=== PATIENT | male | born 1985 | race Two or more races ===

== ENCOUNTER 2019-05-14 00:18 | Inpatient (IN) | payer OTHER ==
[~2019-05-14] VITALS: Ht 180.3 cm; Wt 64.2 kg
[2019-05-14] MEDS ORDERED: ONDANSETRON ODT 4 MG PO ONE (01:00)
[2019-05-14] MEDS ORDERED: ACETAMINOPHEN 500 MG TABLET PO ONE (01:00)
[2019-05-14] MEDS ORDERED: ACETAMINOPHEN 500 MG TABLET ONE (01:28)
[2019-05-14] MEDS ORDERED: ONDANSETRON ODT 4 MG ONE (01:28)
--- NOTE | 2019-05-14 01:35 | NUR ---
PT LEFT FOR CT
--- NOTE | 2019-05-14 01:51 | NUR ---
PT BACK FROM CT
[2019-05-14 02:04] LABS: BASOPHILS # (AUTO) 0.03 x10^3/uL (0-0.1); BASOPHILS % (AUTO) 1 % (0-1); EOSINOPHILS # (AUTO) 0.19 x10^3/uL (0-0.4); EOSINOPHILS % (AUTO) 3 % (1-7); LYMPHOCYTES # (AUTO) 1.92 x10^3/uL (1-3.4); LYMPHOCYTES % (AUTO) 26 % (22-44); MD NO; MEAN CORPUSCULAR HEMOGLOBIN 29.2 pg (27.5-34.5); MEAN CORPUSCULAR HGB CONC 32.7 g/dL (33.2-36.2); MEAN CORPUSCULAR VOLUME 89.1 fL (81-97); MEAN PLATELET VOLUME 8.3 fL (7.4-10.4); MONOCYTES # (AUTO) 0.57 x10^3/uL (0.2-0.8); MONOCYTES % (AUTO) 8 % (2-9); NEUTROPHILS # (AUTO) 4.75 x10^3/uL (1.8-6.8); NEUTROPHILS % (AUTO) 64 % (42-75); PLATELET COUNT 259 x10^3/uL (130-400); RED BLOOD COUNT 5.08 x10^6/uL (4.38-5.82); RED CELL DISTRIBUTION WIDTH 11.8 % (9.4-14.8)
[2019-05-14 02:16] LABS: ALBUMIN 3.8 g/dL (3.4-5.0); ANION GAP 5 mmol/L (5-15); CALCIUM 8.6 mg/dL (8.5-10.1); CHLORIDE 107 mmol/L (98-107); CREATININE 0.98 mg/dL (0.7-1.3); INTERNATIONAL NORMALIZED RATIO 1.02 (0.93-1.1); PROTHROMBIN TIME 10.7 Seconds (9.6-11.5)
[2019-05-14] MEDS ORDERED: MORPHINE SULFATE 4 MG/ML, 1ML ONE (02:17)
[2019-05-14] MEDS ORDERED: ONDANSETRON 2MG/ML, 2ML ONE (02:17)
[2019-05-14] MEDS ORDERED: ONDANSETRON 2MG/ML, 2ML IVPush ONE (02:30)
[2019-05-14] MEDS ORDERED: ONDANSETRON 2MG/ML, 2ML IVPush PRN (02:30)
[2019-05-14] MEDS ORDERED: ACETAMINOPHEN 325 MG TABLET PO PRN (02:30)
[2019-05-14] MEDS ORDERED: SODIUM CHLORIDE 0.9% 1,000ML IVBOLUS ONE (02:30)
[2019-05-14] MEDS ORDERED: MORPHINE SULFATE 4 MG/ML, 1ML IVPush PRN ×2 (02:30→03:00)
[2019-05-14] MEDS ORDERED: hydrALAzine 20 MG/ML, 1ML IV PRN (03:00)
[2019-05-14 03:31] LABS: FREE T4 (FREE THYROXINE) 1.01 ng/dL (0.76-1.46)
[2019-05-14] MEDS: SODIUM CHLORIDE 0.9% 1,000 ML IV SCH ×2 (04:28→16:14)
[2019-05-14 04:34] VITALS: BP 124/79
[2019-05-14 06:38] VITALS: BP 129/86
[2019-05-14] MEDS ORDERED: GADOTERATE 7.5 MMOL/15 ML SYR ONE (07:23)
[2019-05-14] MEDS: DEXAMETHASONE 4 MG TABLET PO SCH ×4 (08:00→16:14)
[2019-05-14] MEDS ORDERED: DEXAMETHASONE 1 MG TABLET ONE ×2 (09:56→12:24)
[2019-05-14] MEDS: ACETAMINOPHEN 325 MG TABLET PO SCH ×3 (10:00→22:06)
[2019-05-14] MEDS: OXYcodone IR 5MG TABLET PO PRN ×2 (11:21→20:54)
[2019-05-14 12:09] VITALS: BP 115/74
[2019-05-14 20:12] VITALS: BP 109/67
[2019-05-15 01:13] VITALS: BP 101/61
[2019-05-15] MEDS: SODIUM CHLORIDE 0.9% 1,000 ML IV SCH ×2 (01:50→10:30)
[2019-05-15] MEDS: ACETAMINOPHEN 325 MG TABLET PO SCH ×4 (05:09→22:02)
[2019-05-15] MEDS: OXYcodone IR 5MG TABLET PO PRN (05:13)
[2019-05-15 06:49] LABS: BASOPHILS # (AUTO) 0.01 x10^3/uL (0-0.1); BASOPHILS % (AUTO) 0 % (0-1); EOSINOPHILS % (AUTO) 0 % (1-7); LYMPHOCYTES # (AUTO) 1.06 x10^3/uL (1-3.4); LYMPHOCYTES % (AUTO) 8 % (22-44); MD NO; MEAN CORPUSCULAR HEMOGLOBIN 29.1 pg (27.5-34.5); MEAN CORPUSCULAR HGB CONC 32.9 g/dL (33.2-36.2); MEAN CORPUSCULAR VOLUME 88.6 fL (81-97); MEAN PLATELET VOLUME 8.8 fL (7.4-10.4); MONOCYTES # (AUTO) 0.55 x10^3/uL (0.2-0.8); MONOCYTES % (AUTO) 4 % (2-9); NEUTROPHILS # (AUTO) 11.42 x10^3/uL (1.8-6.8); NEUTROPHILS % (AUTO) 88 % (42-75); PLATELET COUNT 253 x10^3/uL (130-400); RED BLOOD COUNT 4.82 x10^6/uL (4.38-5.82)
[2019-05-15 06:50] LABS: ANION GAP 7 mmol/L (5-15); CALCIUM 8.4 mg/dL (8.5-10.1); CHLORIDE 107 mmol/L (98-107)
[2019-05-15 06:51] LABS: CREATININE 0.75 mg/dL (0.7-1.3)
[2019-05-15 07:09] VITALS: BP 117/77
[2019-05-15] MEDS: DEXAMETHASONE 4 MG TABLET PO SCH ×3 (08:00→16:47)
[2019-05-15 14:50] VITALS: BP 119/74
[2019-05-15 21:50] VITALS: BP 112/66
[2019-05-15 22:02] VITALS: BP 112/66
[2019-05-16 01:52] VITALS: BP 115/65
[2019-05-16] MEDS: ACETAMINOPHEN 325 MG TABLET PO SCH ×3 (03:47→17:41)
[2019-05-16 07:58] VITALS: BP 109/68
[2019-05-16] MEDS: DEXAMETHASONE 4 MG TABLET PO SCH ×3 (08:32→17:41)
[2019-05-16 13:35] VITALS: BP 126/73
[2019-05-16] MEDS ORDERED: DEXA4TAB66 PO (17:40)
[2019-05-16] MEDS ORDERED: FLU VACC QS2019-20 36MOS UP/PF 0.5 ML IM-VACC ONE (18:30)
== END 2019-05-16 18:56 | disposition home or self-care (01) | DRG 87 ==
LOC: ED 02:00 → EDIP 02:13 → 4EST 04:10
PROVIDERS: ADMIT Internal Medicine; ATTEND Internal Medicine
DX: S06.5X0A Traumatic subdural hemorrhage without loss of consciousness, initial encounter (principal); D72.829 Elevated white blood cell count, unspecified; E05.00 Thyrotoxicosis with diffuse goiter without thyrotoxic crisis or storm; F17.200 Nicotine dependence, unspecified, uncomplicated; Y93.01 Activity, walking, marching and hiking; W18.30XA Fall on same level, unspecified, initial encounter; T38.0X5A Adverse effect of glucocorticoids and synthetic analogues, initial encounter; Y92.89 Other specified places as the place of occurrence of the external cause; Z71.6 Tobacco abuse counseling; G44.309 Post-traumatic headache, unspecified, not intractable
CPT/HCPCS: 36415; 70450; 70553; 80048; 82040; 84439; 84443; 85025; 85610; 85730; 90686; G0378; J2405; Q0162; 92523-GN; A9575; J2270; J7030

== ENCOUNTER 2019-06-02 08:26 | Emergency (ER) | payer OTHER ==
[~2019-06-02] VITALS: Ht 180.3 cm; Wt 65.7 kg
[~2019-06-02 08:26] MED LIST: DEXA4TAB66 PO
[2019-06-02 08:30] VITALS: BP 114/49
--- NOTE | 2019-06-02 08:53 | NUR ---
PT HERE WITH C/O COUGH X 2 WEEKS. PT STATES NO MEDS ARE HELPING AND COUGH IS GETTING WORSE. PT STATES "I WAS COUGHING UP GREEN STUFF BUT NOW IT'S JUST A COUGH." PT DENIES ANY PULMONARY HX.
--- NOTE | 2019-06-02 09:08 | NUR ---
PT TO RADIOLOGY.
--- NOTE | 2019-06-02 09:13 | NUR ---
PT BACK FROM RADIOLOGY.
--- NOTE | 2019-06-02 09:59 | NUR ---
Patient/Caregiver given discharge instructions and they have confirmed that they understand the instructions. Patient ambulatory with steady gait.
== END 2019-06-02 10:01 | disposition home or self-care (01) ==
LOC: ED 09:55
DX: J06.9 Acute upper respiratory infection, unspecified (principal)
CPT/HCPCS: 71046; 99283

== ENCOUNTER → 2019-06-06 | Outpatient (CLI) | payer OTHER | END | disposition home or self-care (01) | LOC: CFH 14:34 | PROVIDERS: ATTEND Physician Assistant Surgical | DX: I61.8 Other nontraumatic intracerebral hemorrhage (principal); J32.9 Chronic sinusitis, unspecified; J34.89 Other specified disorders of nose and nasal sinuses | CPT/HCPCS: 70450 ==

== ENCOUNTER 2019-12-11 23:24 | Emergency (ER) | payer OTHER ==
[~2019-12-11] VITALS: Ht 180.3 cm; Wt 64.0 kg
--- NOTE | 2019-12-11 23:36 | NUR ---
PT AMBULATORY TO ROOM, STEADY GAIT.
--- NOTE | 2019-12-11 23:44 | NUR ---
ERP TO BEDSIDE, AWAITING STICKERS. Addendum: 12/11/19 at 2345 by MTUTTLE AWAITING ORDERS.
[2019-12-11] MEDS ORDERED: MAALOX/HYOSCYAMINE/LIDOCAINE 45 ML BTL ONE (23:50)
--- NOTE | 2019-12-11 23:57 | NUR ---
PT SITTING IN BED, CONNECTED TO BP AND O2 MONITORS. SIDE RAILS UP, CALL LIGHT AND BELONGINGS IN REACH. RESPIRATIONS EVEN AND UNLABORED. WILL CONTINUE TO MONITOR.
[2019-12-12] MEDS ORDERED: MAALOX/HYOSCYAMINE/LIDOCAINE 45 ML BTL PO ONE
[2019-12-12 00:16] LABS: MEAN CORPUSCULAR HEMOGLOBIN 27.1 pg (27.5-34.5); MEAN CORPUSCULAR HGB CONC 32.9 g/dL (33.2-36.2); MEAN CORPUSCULAR VOLUME 82.4 fL (81-97); MEAN PLATELET VOLUME 9.1 fL (7.4-10.4); PLATELET COUNT 210 x10^3/uL (130-400); RED BLOOD COUNT 5.16 x10^6/uL (4.38-5.82); RED CELL DISTRIBUTION WIDTH 12.9 % (9.4-14.8)
[2019-12-12 00:21] LABS: ALANINE AMINOTRANSFERASE 78 U/L (12-78); ALBUMIN 3.8 g/dL (3.4-5.0); ANION GAP 7 mmol/L (5-15); CALCIUM 8.3 mg/dL (8.5-10.1); CHLORIDE 108 mmol/L (98-107); CREATININE 1.06 mg/dL (0.7-1.3)
[2019-12-12 00:23] LABS: ALKALINE PHOSPHATASE 60 U/L (45-117); BILIRUBIN,TOTAL 0.9 mg/dL (0.2-1.0); TOTAL PROTEIN 7.6 g/dL (6.4-8.2)
[2019-12-12 00:33] VITALS: BP 110/68
--- NOTE | 2019-12-12 00:33 | NUR ---
PT AMBULATORY TO BATHROOM, STEADY GAIT.
[2019-12-12 00:38] LABS: BASOPHILS # (AUTO) 0.03 x10^3/uL (0-0.1); BASOPHILS % (AUTO) 1 % (0-1); EOSINOPHILS # (AUTO) 0.24 x10^3/uL (0-0.4); EOSINOPHILS % (AUTO) 4 % (1-7); LYMPHOCYTES # (AUTO) 2.09 x10^3/uL (1-3.4); LYMPHOCYTES % (AUTO) 38 % (22-44); MD SCAN; MONOCYTES % (AUTO) 11 % (2-9); NEUTROPHILS # (AUTO) 2.61 x10^3/uL (1.8-6.8); NEUTROPHILS % (AUTO) 47 % (42-75)
== END 2019-12-12 01:03 | disposition home or self-care (01) ==
LOC: ED 12-12 00:45
DX: K52.9 Noninfective gastroenteritis and colitis, unspecified (principal); R10.13 Epigastric pain; F14.10 Cocaine abuse, uncomplicated; F17.210 Nicotine dependence, cigarettes, uncomplicated
CPT/HCPCS: 36415; 80053; 83690; 85025; 99283; 99406